=== PATIENT | male | born 1965 ===

== ENCOUNTER 2018-12-24 16:18 | Emergency (ER) | payer SELFPAY ==
[2018-12-24] MEDS ORDERED: LORazepam INJ* 2 MG/ML 1 ML VIAL IV PUSH ONE (16:27)
[2018-12-24] MEDS ORDERED: Nicotine Inhaler* 10 MG AMP INH PRN (16:27)
[2018-12-24] MEDS ORDERED: diPHENhydraMINE IV* 50 MG/ML 1 ml VIAL (BENADRYL) IM ONE (16:27)
--- NOTE | 2018-12-24 16:34 | ED ---
Substance Abuse/Use - History Of Current Complaint Stated Complaint: 2209 - Attestation Statements Document Initiated by Scribe: Yes - Assessment for Patient Restraint Evaluation of the Patient's Immediate Situation: Behavior disturbance secondary to sub abuse Patient's Reaction to Intervention: Patient is now more calm, comfortable. Patient's Medication and Behavioral Condition: Substance abuse with Hx of depression Evaluate Need for Continued Restraint: Terminate
[2018-12-24] MEDS: Haloperidol INJ IV/IM* 5 MG/ML AMP IM ONE ×2 (16:50→17:27)
--- NOTE | 2018-12-24 16:58 | ED ---
Altered Mental Status - HPI Summary HPI Summary: Patient is a 53 y/o M presenting to ED with police for AMS. Police report that the patient was found intoxicated, when police approached him and interacted with him, the patient became combative. He was brought to ED as a result. Per triage, "pt arrives via police ([facility]) confused, doesnt know how he got to [facility], wants to get back home to [place], and states he drinks alchol every day/. states he "am a fuck up thats how i got here"". In the room, he denies injuries, pain. He reports Hx of depression but when asked what medications he is on he does not respond. Per nurse Bala's note, "Pt denies SI/HI." Unable to gather full history due to AMS of patient, level 5 caveat. - History Of Current Complaint Stated Complaint: 2208 Hx Obtained From: Patient, Other: - police Hx From Patient Unobtainable Due To: Altered Mental Status - only partial history obtained, level 5 caveat AMS Onset/Duration: Still Present Timing: Constant Severity Currently: None - pain denied Character: Confusion Aggravating Factor(s): Nothing Alleviating Factor(s): Nothing Associated Signs And Symptoms: Positive: Negative Has Suicidal: Thoughts - NEGATIVE Has Homicidal: Thoughts - NEGATIVE - Allergies/Home Medications Allergies/Adverse Reactions: Allergies Allergy/AdvReac Type Severity Reaction Status Date / Time Unable to Assess Allergy Verified 12/24/18 17:46 Home Medications: Home Medications Unobtainable 12/24/18 [History Confirmed 12/24/18] PMH/Surg Hx/FS Hx/Imm Hx Sensory History: Denies: Hx Legally Blind, Hx Deafness Opthamlomology History: Denies: Hx Legally Blind EENT History: Denies: Hx Deafness Psychiatric History: Reports: Hx Depression - Family History Known Family History: Positive: Unknown - level 5 caveat AMS - Social History Alcohol Use: Daily Smoking Status (MU): Heavy Every Day Tobacco Smoker Review of Systems - ROS Summary Review of Systems Summary: level 5 caveat AMS Negative: Fever - ON VITALS, TEMP IS 96.9 F Psychological: Other - POSITIVE - AMS; NEGATIVE - SI, HI All Other Systems Reviewed And Are Negative: No - Comments Additional Review of Systems Comments: level 5 caveat AMS Physical Exam - Summary Physical Exam Summary: Constitutional: Well-developed, Well-nourished, Alert. (-) Distressed Skin: Warm, Dry HENT: Normocephalic; Atraumatic Eyes: Conjunctiva normal, no nystagmus Neck: Musculoskeletal ROM normal neck. (-) JVD, (-) Stridor, (-) Tracheal deviation Cardio: Rhythm regular, rate normal, Heart sounds normal; Intact distal pulses; The pedal pulses are 2+ and symmetric. Radial pulses are 2+ and symmetric. (-) Murmur Pulmonary/Chest wall: Effort normal. (-) Respiratory distress, (-) Wheezes, (-) Rales Abd: Soft, (-) epigastric tenderness, (-) Distension, (-) Guarding, (-) Rebound Musculoskeletal: (-) Edema Lymph: (-) Cervical adenopathy Neuro: Speech slurred, not following commands, finger to nose ataxia is noted. Triage Information Reviewed: Yes Vital Signs On Initial Exam: Initial Vitals Temp Pulse Resp BP Pulse Ox 96.9 F 80 19 151/102 92 12/24/18 16:38 12/24/18 16:38 12/24/18 16:38 12/24/18 16:38 12/24/18 16:38 Vital Signs Reviewed: Yes Diagnostics - Laboratory Result Diagrams: 12/24/18 18:20 Lab Statement: Any lab studies that have been ordered have been reviewed, and results considered in the medical decision making process. Re-Evaluation - Re-Evaluation First Eval Re-Evaluation Time: 16:50 Comment: 1650 patient was given Ativan 2 mg IV and Benadryl 50 mg IM ONCE for anxiety. Second Eval Re-Evaluation Time: 17:27 Change: Worse Comment: 1727 patient had become agitated, yelling, and trying to get out of bed, 10 mg Haldol administered. Altered Mental Statu Course/Dx - Course Course Of Treatment: Patient is a 53 y/o M presenting to ED with police for AMS. Police report that the patient was found intoxicated, when police approached him and interacted with him, the patient became combative. He was brought to ED as a result. Per triage, "pt arrives [place] [facility] ([facility]) confused , doesnt know how he got to [facility], wants to get back home to [place], and states he drinks alchol every day/. states he "am a fuck up thats how i got here "". In the room, he denies injuries, pain. He reports Hx of depression but when asked what medications he is on he does not respond. Per nurse Bala's note, "Pt denies SI/HI." Unable to gather full history due to AMS of patient, level 5 caveat. On physical exam, speech slurred, not following commands, finger to nose ataxia is noted. 1650 patient was given Ativan 2 mg IV and Benadryl 50 mg IM ONCE for anxiety. 172 patient had become agitated, yelling, and trying to get out of bed, 10 mg Haldol administered. Labs showed Hgb 13.6, Hct 40, MPV 6.2. Patient is signed out to Dr. Ward pending remainder of labs, sobriety of patient, and MHE. - Diagnoses Provider Diagnoses: Drug intoxication, Combative behavior Discharge - Sign-Out/Discharge Documenting (check all that apply): Sign-Out Patient Signing out patient TO: Kavin Ward - Discharge Plan - Attestation Statements Document Initiated by Scribe: Yes Documenting Scribe: JUDY FIORE Provider For Whom Scribe is Documenting (Include Credential): HARLEY HOLT MD Scribe Attestation: I, JUDY FIORE, scribed for HARLEY HOLT MD on 12/24/18 at 1845. Status of Scribe Document: Ready - Assessment for Patient Restraint Evaluation of the Patient's Immediate Situation: Behavior disturbance secondary to sub abuse Patient's Reaction to Intervention: Patient is now more calm, comfortable. Patient's Medication and Behavioral Condition: Substance abuse with Hx of depression Evaluate Need for Continued Restraint: Terminate
[2018-12-24] MEDS ORDERED: Haloperidol INJ IV/IM* 5 MG/ML AMP ONE (17:24)
[2018-12-24 18:38] LABS: ABS Basophils 0.1 10^3/ul (0-0.2); ABS Eosinophils 0.1 10^3/ul (0-0.6); ABS Lymphocytes 1.7 10^3/ul (1.0-4.8); ABS Monocytes 0.3 10^3/ul (0-0.8); ABS Neutrophils 2.2 10^3/ul (1.5-7.7); ABS Nucleated RBC 0 10^3/ul; Eosinophil % 1.8 %; Hematocrit 40 % (42-52); Hemoglobin 13.6 g/dl (14.0-18.0); Lymphocyte % 39.8 %; Mean Corpuscular HGB Conc 34 g/dl (31-36); Mean Corpuscular Hemoglobin 31 pg (27-31); Mean Corpuscular Volume 91 fL (80-94); Mean Platelet Volume 6.2 fL (7.4-10.4); Nucleated Red Blood Cells % 0.1; Platelet Count 276 10^3/ul (150-450); Red Cell Distribution Width 14 % (10.5-15); White Blood Count 4.3 10^3/ul (3.5-10.8)
[2018-12-24 18:52] LABS: Urine Appearance Clear; Urine Bacteria Absent (Absent); Urine Bilirubin Negative (Negative); Urine Blood 1+ (Negative); Urine Color Straw; Urine Glucose Negative (Negative); Urine Ketones Negative (Negative); Urine Nitrite Negative (Negative); Urine Protein Negative (Negative); Urine Red Blood Cell Trace(0-2/hpf) (Absent); Urine Specific Gravity 1.003 (1.010-1.030); Urine Urobilinogen Negative (Negative); Urine White Blood Cell Trace(0-5/hpf) (Absent)
[2018-12-24 19:00] LABS: ALT 36 U/L (7-52); AST 74 U/L (13-39); Albumin 4.3 g/dL (3.2-5.2); Albumin/Globulin Ratio 1.7 (1-3); Alkaline Phosphatase 89 U/L (34-104); Anion Gap 10 mmol/L (2-11); CO2 Carbon Dioxide 28 mmol/L (22-32); Calcium 8.7 mg/dL (8.6-10.3); Chloride 103 mmol/L (101-111); EGFR African American 106.8 (>60); EGFR Non-African American 88.3 (>60); Globulin 2.6 g/dL (2-4); Glucose 83 mg/dL (70-100); Potassium 3.6 mmol/L (3.5-5.0); Sodium 141 mmol/L (135-145); Total Protein 6.9 g/dL (6.4-8.9)
[2018-12-24 19:16] LABS: Acetaminophen < 15 mcg/mL; Alcohol 399 mg/dL (<10); Salicylate < 2.50 mg/dL (<30)
--- NOTE | 2018-12-24 19:17 | ED ---
Progress - Progress Note Progress Note: Patient was signed out from Dr. Mckeon to Dr. Ward during a shift change. The patient is pending labs, sobriety, and a MHE. Course/Dx - Course Course Of Treatment: Patient is a 53 y/o M presenting to ED with police for AMS. Police report that the patient was found intoxicated, when police approached him and interacted with him, the patient became combative. He was brought to ED as a result. Per triage, "pt arrives via police ([facility]) confused , doesnt know how he got to [facility], wants to get back home to [place], and states he drinks alchol every day/. states he "am a fuck up thats how i got here "". In the room, he denies injuries, pain. He reports Hx of depression but when asked what medications he is on he does not respond. Per nurse Bala's note, "Pt denies SI/HI." Unable to gather full history due to AMS of patient, level 5 caveat. On physical exam, speech slurred, not following commands, finger to nose ataxia is noted. 1650 patient was given Ativan 2 mg IV and Benadryl 50 mg IM ONCE for anxiety. 1727 patient had become agitated, yelling, and trying to get out of bed, 10 mg Haldol administered. Labs showed Hgb 13.6, Hct 40, MPV 6.2. Patient is signed out to Dr. Ward pending remainder of labs, sobriety of patient, and MHE. - Diagnoses Provider Diagnoses: Drug intoxication, Combative behavior Discharge - Sign-Out/Discharge Documenting (check all that apply): Patient Departure - D/C, Receiving Sign-Out Receiving patient FROM: James Mckeon - Pending UA labs, sobriety, and a MHE Patient Received Moderate/Deep Sedation with Procedure: No - Discharge Plan Condition: Improved Disposition: HOME Patient Education Materials: Alcohol Intoxication (ED) Referrals: [facility] [Outside] [facility] [Outside] - Billing Disposition and Condition Condition: IMPROVED Disposition: Home - Attestation Statements Document Initiated by Scribe: Yes Documenting Scribe: Hao Lara Provider For Whom Scribe is Documenting (Include Credential): Kavin Ward MD Scribe Attestation: Hao Romero, scribed for Kavin Ward MD on 12/26/18 at 0454. Scribe Documentation Reviewed: Yes Provider Attestation: The documentation as recorded by the scribe, Hao Lara accurately reflects the service I personally performed and the decisions made by me, Kavin Ward MD Status of Scribe Document: Viewed
[2018-12-24 19:33] LABS: BUN/Creatinine Ratio 11.1 (8-20); Blood Urea Nitrogen 10 mg/dL (6-24)
[2018-12-24 19:49] LABS: TSH (Thyroid Stimulating Horm) 0.89 mcIU/mL (0.34-5.60)
[2018-12-24 19:58] LABS: Barbiturates Urine Screen None Detected (None Detect); Benzodiazepine Urine Screen None Detected (None Detect); Urine Cannabinoids Screen Presumptive Positive (None Detect)
== END 2018-12-25 06:46 | disposition home or self-care (01) ==
LOC: ED 16:18
DX: T50.905A Adverse effect of unspecified drugs, medicaments and biological substances, initial encounter (principal); R45.6 Violent behavior; F17.210 Nicotine dependence, cigarettes, uncomplicated; R41.82 Altered mental status, unspecified
CPT/HCPCS: 36415; 80053; 80307; 80320; 80329; 81003; 81015; 84443; 85025; 87086; 96372; 96374; 99285; G0480; J1200; J1630; J2060